=== PATIENT | female | born 1965 | race Caucasian/White ===

== ENCOUNTER → 2022-01-22 10:15 | Outpatient (BNVA) | payer OTHER, SELFPAY | PROVIDERS: PCP Internal Medicine; Visit Provider Internal Medicine Rheumatology | DX: M06.00 Rheumatoid arthritis without rheumatoid factor, unspecified site (principal); M47.816 Spondylosis without myelopathy or radiculopathy, lumbar region; M79.7 Fibromyalgia; F32.A Depression, unspecified; M81.0 Age-related osteoporosis without current pathological fracture; Z79.899 Other long term (current) drug therapy | CPT/HCPCS: 99212 ==

== ENCOUNTER 2022-04-17 12:05 | Outpatient (REF) | payer OTHER, SELFPAY ==
[2022-04-17 12:25] LABS: MANUAL DIFF FLAG NO
[2022-04-17 12:45] LABS: Basophils Percent Auto 0.5 % (0-2); Eosinophils Absolute Auto 0.2 X10*3/uL (0.0-0.4); Hematocrit 42.2 % (37.0-47.0); Hemoglobin 13.8 g/dl (12.0-16.0); Imm Gran Abs Auto 0.03 X10*3/uL (0.00-0.03); Imm Gran Pct Auto 0.3 % (0.0-0.4); Lymphocytes Absolute Auto 2.9 X10*3/uL (1.2-4.9); Lymphocytes Percent Auto 32.5 % (20-40); Mean Corpuscular HGB Conc 32.7 g/dl (31.0-35.0); Mean Corpuscular Hemoglobin 33.1 pg (27.0-33.0); Mean Corpuscular Volume 101.2 fL (80.0-98.0); Mean Platelet Volume 9.6 fL (9.4-12.3); Monocytes Absolute Auto 0.5 X10*3/uL (0.1-1.2); Neutrophils Absolute Auto 5.2 x10*3/uL (2.0-8.3); Neutrophils Percent Auto 58.7 % (45-73); Platelet Count 315 X10*3/uL (160-400); Red Blood Count 4.17 X10*6/uL (4.20-5.50); Red Cell Distribution Width 12.8 % (11.0-16.0); White Blood Count 8.8 X10*3/uL (4.8-10.8)
[2022-04-17 13:12] LABS: Alanine Aminotransferase 16 U/L (0-31); Aspartate Amino Transferase 18 U/L (5-31); C Reactive Protein 1.09 mg/dL (< or = 0.50); Estimated Glomerular Filt Rate > 60
[2022-04-17 13:32] LABS: Erythrocyte Sedimentation Rate 64 MM/HR (0-20)
== END 2022-04-17 12:06 | disposition home or self-care (01) ==
LOC: HO.LAB 12:05
PROVIDERS: Visit Provider Internal Medicine Rheumatology
DX: M06.00 Rheumatoid arthritis without rheumatoid factor, unspecified site (principal); Z79.899 Other long term (current) drug therapy
CPT/HCPCS: 36415; 82565; 84450; 84460; 85025; 85652; 86140

== ENCOUNTER → 2022-04-20 13:11 | Outpatient (BNVA) | payer OTHER, SELFPAY | PROVIDERS: PCP Internal Medicine; Visit Provider Internal Medicine Rheumatology | DX: M06.00 Rheumatoid arthritis without rheumatoid factor, unspecified site (principal); M81.0 Age-related osteoporosis without current pathological fracture; M79.7 Fibromyalgia; M47.816 Spondylosis without myelopathy or radiculopathy, lumbar region; M47.812 Spondylosis without myelopathy or radiculopathy, cervical region; Z79.899 Other long term (current) drug therapy | CPT/HCPCS: 99212 ==

== ENCOUNTER 2022-07-01 12:08 | Outpatient (REF) | payer OTHER, SELFPAY ==
[2022-07-01 13:14] LABS: Alanine Aminotransferase 13 U/L (0-31); Aspartate Amino Transferase 16 U/L (5-31); C Reactive Protein 1.48 mg/dL (< or = 0.50); Estimated Glomerular Filt Rate > 60
[2022-07-01 13:21] LABS: Erythrocyte Sedimentation Rate 64 MM/HR (0-20)
== END 2022-07-01 12:09 | disposition home or self-care (01) ==
LOC: HO.LAB 12:08
PROVIDERS: Visit Provider Internal Medicine Rheumatology
DX: M06.00 Rheumatoid arthritis without rheumatoid factor, unspecified site (principal); Z79.899 Other long term (current) drug therapy
CPT/HCPCS: 36415; 82565; 84450; 84460; 85652; 86140

== ENCOUNTER 2022-08-14 12:07 | Outpatient (REF) | payer OTHER, SELFPAY ==
[2022-08-14 12:28] LABS: MANUAL DIFF FLAG NO
[2022-08-14 13:27] LABS: Basophils Percent Auto 0.2 % (0-2); Eosinophils Absolute Auto 0.2 X10*3/uL (0.0-0.4); Eosinophils Percent Auto 1.8 % (0-4); Hematocrit 37.8 % (37.0-47.0); Hemoglobin 12.6 g/dl (12.0-16.0); Imm Gran Abs Auto 0.02 X10*3/uL (0.00-0.03); Imm Gran Pct Auto 0.2 % (0.0-0.4); Lymphocytes Absolute Auto 2.8 X10*3/uL (1.2-4.9); Lymphocytes Percent Auto 34.6 % (20-40); Mean Corpuscular HGB Conc 33.3 g/dl (31.0-35.0); Mean Corpuscular Hemoglobin 33.7 pg (27.0-33.0); Mean Corpuscular Volume 101.1 fL (80.0-98.0); Mean Platelet Volume 10.2 fL (9.4-12.3); Monocytes Absolute Auto 0.6 X10*3/uL (0.1-1.2); Monocytes Percent Auto 6.8 % (2-11); Neutrophils Absolute Auto 4.6 x10*3/uL (2.0-8.3); Neutrophils Percent Auto 56.4 % (45-73); Platelet Count 294 X10*3/uL (160-400); Red Blood Count 3.74 X10*6/uL (4.20-5.50); Red Cell Distribution Width 12.4 % (11.0-16.0); White Blood Count 8.1 X10*3/uL (4.8-10.8)
[2022-08-14 13:46] LABS: Alanine Aminotransferase 13 U/L (0-31); Aspartate Amino Transferase 16 U/L (5-31); C Reactive Protein 1.42 mg/dL (< or = 0.50); Estimated Glomerular Filt Rate > 60
[2022-08-14 14:12] LABS: Erythrocyte Sedimentation Rate 64 MM/HR (0-20)
== END 2022-08-14 12:08 | disposition home or self-care (01) ==
LOC: HO.LAB 12:07
PROVIDERS: PCP Internal Medicine; Visit Provider Internal Medicine Rheumatology
DX: M06.00 Rheumatoid arthritis without rheumatoid factor, unspecified site (principal); Z79.899 Other long term (current) drug therapy
CPT/HCPCS: 36415; 82565; 84450; 84460; 85025; 85652; 86140

== ENCOUNTER → 2022-08-20 09:47 | Outpatient (BNVA) | payer OTHER, SELFPAY | PROVIDERS: PCP Internal Medicine; Visit Provider Internal Medicine Rheumatology | DX: M47.816 Spondylosis without myelopathy or radiculopathy, lumbar region (principal); M06.00 Rheumatoid arthritis without rheumatoid factor, unspecified site; M81.0 Age-related osteoporosis without current pathological fracture; Z79.899 Other long term (current) drug therapy | CPT/HCPCS: 99212 ==

== ENCOUNTER 2022-10-09 11:16 | Outpatient (REF) | payer MEDICARE, MEDICAID, SELFPAY ==
[2022-10-09 14:22] LABS: MANUAL DIFF FLAG NO
[2022-10-09 14:28] LABS: Basophils Absolute Auto 0.1 X10*3/uL (0.0-0.2); Basophils Percent Auto 0.7 % (0-2); Eosinophils Absolute Auto 0.2 X10*3/uL (0.0-0.4); Eosinophils Percent Auto 2.9 % (0-4); Hematocrit 42.1 % (37.0-47.0); Hemoglobin 13.9 g/dl (12.0-16.0); Imm Gran Abs Auto 0.02 X10*3/uL (0.00-0.03); Imm Gran Pct Auto 0.3 % (0.0-0.4); Lymphocytes Absolute Auto 2.6 X10*3/uL (1.2-4.9); Lymphocytes Percent Auto 36.2 % (20-40); Mean Corpuscular Hemoglobin 33.6 pg (27.0-33.0); Mean Corpuscular Volume 101.7 fL (80.0-98.0); Mean Platelet Volume 9.7 fL (9.4-12.3); Monocytes Absolute Auto 0.5 X10*3/uL (0.1-1.2); Monocytes Percent Auto 7.3 % (2-11); Neutrophils Absolute Auto 3.8 x10*3/uL (2.0-8.3); Neutrophils Percent Auto 52.6 % (45-73); Platelet Count 314 X10*3/uL (160-400); Red Blood Count 4.14 X10*6/uL (4.20-5.50); Red Cell Distribution Width 12.4 % (11.0-16.0); White Blood Count 7.3 X10*3/uL (4.8-10.8)
[2022-10-09 14:52] LABS: Alanine Aminotransferase 14 U/L (0-31); Aspartate Amino Transferase 19 U/L (5-31); C Reactive Protein 1.49 mg/dL (< or = 0.50); Estimated Glomerular Filt Rate > 60
[2022-10-09 17:04] LABS: Erythrocyte Sedimentation Rate 77 MM/HR (0-20)
== END 2022-10-09 11:17 | disposition home or self-care (01) ==
LOC: HO.10HDL 11:16
PROVIDERS: Visit Provider Internal Medicine Rheumatology
DX: M06.00 Rheumatoid arthritis without rheumatoid factor, unspecified site (principal); Z79.899 Other long term (current) drug therapy
CPT/HCPCS: 36415; 82565; 84450; 84460; 85025; 85652; 86140

== ENCOUNTER 2023-01-11 12:24 | Outpatient (REF) | payer MEDICARE, MEDICAID, SELFPAY ==
[2023-01-11 14:05] LABS: MANUAL DIFF FLAG NO
[2023-01-11 14:10] LABS: Basophils Absolute Auto 0.1 X10*3/uL (0.0-0.2); Basophils Percent Auto 0.7 % (0-2); Eosinophils Absolute Auto 0.2 X10*3/uL (0.0-0.4); Eosinophils Percent Auto 2.6 % (0-4); Hematocrit 41.5 % (37.0-47.0); Hemoglobin 13.7 g/dl (12.0-16.0); Imm Gran Abs Auto 0.02 X10*3/uL (0.00-0.03); Imm Gran Pct Auto 0.2 % (0.0-0.4); Lymphocytes Percent Auto 36.1 % (20-40); Mean Corpuscular Hemoglobin 33.7 pg (27.0-33.0); Mean Corpuscular Volume 102.2 fL (80.0-98.0); Mean Platelet Volume 9.8 fL (9.4-12.3); Monocytes Absolute Auto 0.6 X10*3/uL (0.1-1.2); Monocytes Percent Auto 6.5 % (2-11); Neutrophils Absolute Auto 4.5 x10*3/uL (2.0-8.3); Neutrophils Percent Auto 53.9 % (45-73); Platelet Count 357 X10*3/uL (160-400); Red Blood Count 4.06 X10*6/uL (4.20-5.50); Red Cell Distribution Width 12.5 % (11.0-16.0); White Blood Count 8.4 X10*3/uL (4.8-10.8)
[2023-01-11 14:50] LABS: Erythrocyte Sedimentation Rate 67 MM/HR (0-20)
[2023-01-11 14:52] LABS: Alanine Aminotransferase 14 U/L (0-31); Aspartate Amino Transferase 16 U/L (5-31); C Reactive Protein 1.22 mg/dL (< or = 0.50); Estimated Glomerular Filt Rate > 60
== END 2023-01-11 12:25 | disposition home or self-care (01) ==
LOC: HO.HMGCLDS 12:24
PROVIDERS: PCP Internal Medicine; Visit Provider Internal Medicine Rheumatology
DX: M06.00 Rheumatoid arthritis without rheumatoid factor, unspecified site (principal); Z79.899 Other long term (current) drug therapy
CPT/HCPCS: 36415; 82565; 84450; 84460; 85025; 85652; 86140

== ENCOUNTER → 2023-04-06 09:47 | Outpatient (BNVA) | payer MEDICARE, MEDICAID, SELFPAY | PROVIDERS: PCP Internal Medicine; Visit Provider Internal Medicine Rheumatology | DX: M06.00 Rheumatoid arthritis without rheumatoid factor, unspecified site (principal); M79.7 Fibromyalgia; M81.0 Age-related osteoporosis without current pathological fracture; M47.816 Spondylosis without myelopathy or radiculopathy, lumbar region; Z79.631 Long term (current) use of antimetabolite agent; Z79.899 Other long term (current) drug therapy | CPT/HCPCS: 36415; 82565; 84450; 84460; 85025; 85652; 86140; 99212 ==

== ENCOUNTER 2023-06-30 11:41 | Outpatient (REF) | payer MEDICARE, MEDICAID, SELFPAY ==
[2023-06-30 13:17] LABS: MANUAL DIFF FLAG NO
[2023-06-30 13:40] LABS: Basophils Absolute Auto 0.1 X10*3/uL (0.0-0.2); Basophils Percent Auto 0.8 % (0-2); Eosinophils Absolute Auto 0.2 X10*3/uL (0.0-0.4); Hematocrit 41.3 % (37.0-47.0); Hemoglobin 13.7 g/dl (12.0-16.0); Imm Gran Abs Auto 0.02 X10*3/uL (0.00-0.03); Imm Gran Pct Auto 0.2 % (0.0-0.4); Lymphocytes Percent Auto 34.5 % (20-40); Mean Corpuscular HGB Conc 33.2 g/dl (31.0-35.0); Mean Corpuscular Hemoglobin 33.9 pg (27.0-33.0); Mean Corpuscular Volume 102.2 fL (80.0-98.0); Mean Platelet Volume 9.6 fL (9.4-12.3); Monocytes Absolute Auto 0.6 X10*3/uL (0.1-1.2); Monocytes Percent Auto 6.7 % (2-11); Neutrophils Absolute Auto 4.9 x10*3/uL (2.0-8.3); Neutrophils Percent Auto 55.8 % (45-73); Platelet Count 303 X10*3/uL (160-400); Red Blood Count 4.04 X10*6/uL (4.20-5.50); Red Cell Distribution Width 12.4 % (11.0-16.0); White Blood Count 8.8 X10*3/uL (4.8-10.8)
[2023-06-30 13:48] LABS: Alanine Aminotransferase 13 U/L (0-31); Aspartate Amino Transferase 15 U/L (5-31); C Reactive Protein 1.14 mg/dL (< or = 0.50); Estimated Glomerular Filt Rate > 60
[2023-06-30 14:06] LABS: Erythrocyte Sedimentation Rate 73 MM/HR (0-20)
== END 2023-06-30 11:42 | disposition home or self-care (01) ==
LOC: HO.HMGCLDS 11:41
PROVIDERS: PCP Internal Medicine; Visit Provider Internal Medicine Rheumatology
DX: M06.00 Rheumatoid arthritis without rheumatoid factor, unspecified site (principal); Z79.899 Other long term (current) drug therapy
CPT/HCPCS: 36415; 82565; 84450; 84460; 85025; 85652; 86140

== ENCOUNTER 2023-08-24 10:52 | Outpatient (AMB) | payer MEDICARE, MEDICAID, SELFPAY ==
--- NOTE | 2023-08-24 10:57 | A.OFFVIS_ITS ---
Intake Vital Signs 08/24/23 10:58 Height 5 ft Weight 151 lb 0.266 oz BMI 29.5 BP 100/62 Blood Pressure Location Lt brachial Position Sitting Pulse 69 Pulse Source Pulse Oximeter Temp 97 F Temp Source Skin Pulse Oximetry (%) 95 Oxygen Delivery Method Room Air Intake Visit Reasons: RA Intake Note: Patient presents today to follow up on RA. Node Js Developer Required: No Accompanied by: Self / Same As Patient Allergies seafood Allergy (Severe, Verified 08/24/23 11:04) throat closes sulfamethoxazole [From Bactrim] Allergy (Intermediate, Verified 08/24/23 11:04) hives trimethoprim [From Bactrim] Allergy (Intermediate, Verified 08/24/23 11:04) hives Medication List - Last Reconciled 08/24/23 by Jt Allison MD albuterol sulfate 90 mcg/actuation 0 mcg inhalation alendronate 70 mg PO QWEEK aspirin (Adult Low Dose Aspirin) 81 mg PO DAILY budesonide-formoterol 160-4.5 mcg/actuation (Symbicort) inhalation cholecalciferol (vitamin D3) (Vitamin D3) 50 mcg PO DAILY cyclobenzaprine 5 mg PO TID PRN diltiazem HCl ER 240 mg PO DAILY docusate sodium 100 mg PO BID duloxetine 60 mg PO DAILY folic acid 1 mg PO DAILY hydrocodone-acetaminophen 10-325 mg 1 tab PO .up to 5 times a day PRN meloxicam 15 mg PO DAILY methotrexate sodium 20 mg (8 x 2.5 mg) PO QWEEK omeprazole 40 mg PO DAILY oxycodone ER (OxyContin) 15 mg PO BID rosuvastatin 5 mg PO DAILY HPI HPI Comments History of Present Illness Details The patient returns today for evaluation of her rheumatoid arthritis, osteoarthritis, and osteoporosis. For the rheumatoid arthritis she remains on 20 mg weekly methotrexate folic acid 1 mg daily, and meloxicam 15 mg daily. Julee ndronate 70 mg weekly is continued for her osteoporosis without any apparent side effects. She remains on pain medicines -OxyContin and Vicodin - through her primary doctor and cyclobenzaprine if needed. In some respects she says she has been more active but she has more stress at home. She had to go out to [place] and brought back her mother who apparently has dementia and was in a abuse/neglected living situation. She has been with the daughter now for about a month. They are trying to get a handle on her medical issues. The patient still gets intermittent hand and wrist pain but no swelling. I did inject the wrist awhile ago and that helped. She has knee pain on the right when she is more active but it does not swell. It was not helped with injections in past. The patient did look into getting to the pool at the [facility] but the expenses were too high. She says she may decide to buy a hot tub as she felt much more mobile and comfortable in the warm water. The patient does not describe any side effects from the current medications. [facility] Medical History (Updated 08/20/22 @ 11:51 by Jt Allison MD) correction current use of immunosuppressive drug Depressed Fibromyalgia Osteoarthritis of lumbar spine Osteoporosis Seronegative rheumatoid arthritis Social History Household Members Other:: Living with son Housing: House Are you a primary life care planner to a significant other at home: No Do you presently have visiting nurse or other home services: No 75 years or older and lives alone: No Alcohol intake: never Patient Tobacco Use Status: Current everyday Tobacco user Tobacco use type: Cigarette Cigarettes Per Day: 5 Years Smoked: 43 years e-Cigarette/Vaping Use: Never Used service: No Current occupational status: unemployed Review of Systems Const Details: Negative for appetite change, weight change, fever, chills, malaise and fatigue Card Details: Negative chest pain, edema and syncope Resp Details: Negative for SOB, cough and wheezing GI Details: Negative indigestion/heartburn, nausea, abdominal pain, bowel changes, diarrhea, constipation and bloody stool. Psych Details: More stress at home caring for her mother. Negative for anxiety, depression Endo Details: Negative for polyuria and polydypsia Jd/Lymph Details: Negative for excessive bruising or bleeding. Physical Exam Vital Signs: Last Vital Signs Temp 97 F 08/24/23 10:58 Pulse 69 08/24/23 10:58 BP 100/62 08/24/23 10:58 Pulse Ox 95 08/24/23 10:58 Oxygen Delivery Method Room Air 08/24/23 10:58 BMI result Body Mass Index 29.5 APPEARANCE: Patient in no acute distress EXTREMITIES: No edema, no calf tenderness, normal peripheral pulses. JOINT EXAM: Cervical Spine:.? Mild pain with more than 20 degrees lateral rotation or lateral flexion at 50 degrees.? Some paraspinal muscle tenderness. Thoracic Spine:.? No scoliosis.? No tenderness on palpation. Lumbar Spine:.? Alignment normal.? Mild to moderate pain with flexion beyond 45 degrees.? There is some slight paraspinal muscle tenderness. Chest Wall:.? No tenderness, swelling, increased warmth or erythema. Hands:? Right:? Mild tenderness at the base of the thumb with some minimal bony enlargement.? Mild tenderness at the 2nd PIP without soft tissue swelling.? There is no thenar atrophy, sensory loss, a flexor tendon triggering.? Left: Slight tenderness at the base of the thumb.? Minimal tenderness at the 2nd and 3rd PIP is without swelling.? Elsewhere no swelling.? No thenar atrophy or sensory loss. Wrists:? Right:?no pain with flexion at 75 degrees with some slight the tenderness but no swelling, increased warmth or erythema.? Left:? Pain-free flexion or extension to 75 degrees.? No tenderness or swelling. Elbows:. Normal pain-free range of motion without tenderness, swelling, increased warmth or erythema. Shoulders:.?? Right: Full range of motion with slight discomfort with abduction 150 degrees.? The pain is felt over the trapezius in the top of the shoulders.? Mild anterior and posterior tenderness without adenopathy, weakness, swelling, increased warmth or erythema. Left: Mild pain with the extremes of normal range of motion. There is mild anterior tenderness without abductor weakness or adenopathy. Hips:? Full range of motion with lumbar pain with more than 10 degrees of internal and external rotation.? No groin pain with motion.? Hip bursa:.? No tenderness. Knees:.? Right:? Slight pain with extremes of flexion extension with some minimal medial tenderness but no redness or effusion.? Mild patellofemoral crepitus.? Left:? Normal pain-free range of motion with mild patellofemoral crepitus but no tenderness, swelling, increased warmth or erythema. Ankles:.? Normal pain-free range of motion with mild tenderness but no swelling, increased warmth or erythema. Feet:.? Normal pain-free range of motion without tenderness, swelling, increased warmth or erythema. Tender points:? mild tenderness to digital palpation at the occiput, trapezius, second rib, lateral epicondyle, right knee, greater trochanter and gluteal area bilaterally. Results Reviewed Results Reviewed: Laboratory Tests 06/30/23 06/30/23 06/30/23 11:44 11:46 11:46 WBC 8.8 Hgb 13.7 ESR 73 H Creatinine 0.74 AST 15 ALT 13 C-Reactive Protein 1.14 H Assessment & Plan Assessment & Plan (1) correction current use of immunosuppressive drug: Comment: lab in May and July Code(s): Z79.899 - Other middle or intermediate school principal (current) drug therapy (2) Fibromyalgia: Code(s): M79.7 - Fibromyalgia (3) Osteoarthritis of lumbar spine: Code(s): M47.816 - Spondylosis without myelopathy or radiculopathy, lumbar region (4) Osteoporosis: Comment: Alendronate since 2018 Code(s): M81.0 - Age-related osteoporosis without current pathological fracture (5) Seronegative rheumatoid arthritis: Comment: methotrexate started 01/2019 Code(s): M06.00 - Rheumatoid arthritis without rheumatoid factor, unspecified site Plan She still has many pains but I do not see much on exam to suggest active synovitis from the rheumatoid arthritis. Her acute phase reactants remain elevated as they have for years but I still do not have a good explanation for that. There is lumbar pain of course due to osteoarthritis and previous compression fractures. The current pain regimen seems to be helpful for her without over-sedation. There are many areas of tenderness suggesting some underlying fibromyalgia as well. She should continue with efforts at trying to be active. Alendronate is tolerated and should be continued for her osteoporosis. We will check lab work again in 2 months and 4 months. Return in 4 months. Orders: Orders Alanine Aminotransferase Today M06.00 - Rheumatoid arthritis without rheumatoid factor, unspecified site, Z79.899 - Other middle or intermediate school principal (current) drug therapy Aspartate Amino Transferase Today M06.00 - Rheumatoid arthritis without rheumatoid factor, unspecified site, Z79.899 - Other fdc (current) drug therapy Complete Blood Count Auto Diff Today M06.00 - Rheumatoid arthritis without rheumatoid factor, unspecified site, Z79.899 - Other middle or intermediate school principal (current) drug therapy Erythrocyte Sedimentation Rate Today M06.00 - Rheumatoid arthritis without rheumatoid factor, unspecified site C Reactive Protein Today M06.00 - Rheumatoid arthritis without rheumatoid factor, unspecified site Creatinine Today M06.00 - Rheumatoid arthritis without rheumatoid factor, unspecified site, Z79.899 - Other middle or intermediate school principal (current) drug therapy Coding Level of Care Code Est Pt Level 3 (63294) Diagnoses correction current use of immunosuppressive drug Z79.899 Fibromyalgia M79.7 Osteoarthritis of lumbar spine M47.816 Osteoporosis M81.0 Seronegative rheumatoid arthritis M06.00
[2023-08-24 10:58] VITALS: BP 100/62; PULSE 69; TEMP 36.1; O2SAT 95; BMI 29.5
== END 2023-08-24 11:38 | disposition home or self-care (01) ==
PROVIDERS: PCP Internal Medicine; Visit Provider Internal Medicine Rheumatology
DX: Z79.899 Other long term (current) drug therapy (principal); M79.7 Fibromyalgia; M47.816 Spondylosis without myelopathy or radiculopathy, lumbar region; M81.0 Age-related osteoporosis without current pathological fracture; M06.00 Rheumatoid arthritis without rheumatoid factor, unspecified site
CPT/HCPCS: 99213

== ENCOUNTER → 2023-08-24 10:52 | Outpatient (BNVA) | payer MEDICARE, MEDICAID, SELFPAY | PROVIDERS: PCP Internal Medicine; Visit Provider Internal Medicine Rheumatology | DX: M81.0 Age-related osteoporosis without current pathological fracture (principal); M79.7 Fibromyalgia; M06.00 Rheumatoid arthritis without rheumatoid factor, unspecified site; M47.816 Spondylosis without myelopathy or radiculopathy, lumbar region; Z79.899 Other long term (current) drug therapy | CPT/HCPCS: 99212 ==

== ENCOUNTER 2023-10-05 10:20 | Outpatient (REF) | payer MEDICARE, MEDICAID, SELFPAY ==
[2023-10-05 13:42] LABS: MANUAL DIFF FLAG NO
[2023-10-05 13:55] LABS: Basophils Absolute Auto 0.1 X10*3/uL (0.0-0.2); Basophils Percent Auto 0.8 % (0-2); Eosinophils Absolute Auto 0.2 X10*3/uL (0.0-0.4); Hematocrit 43.3 % (37.0-47.0); Hemoglobin 13.9 g/dl (12.0-16.0); Imm Gran Abs Auto 0.02 X10*3/uL (0.00-0.03); Imm Gran Pct Auto 0.3 % (0.0-0.4); Lymphocytes Absolute Auto 2.5 X10*3/uL (1.2-4.9); Lymphocytes Percent Auto 35.6 % (20-40); Mean Corpuscular HGB Conc 32.1 g/dl (31.0-35.0); Mean Corpuscular Hemoglobin 33.5 pg (27.0-33.0); Mean Corpuscular Volume 104.3 fL (80.0-98.0); Mean Platelet Volume 10.3 fL (9.4-12.3); Monocytes Absolute Auto 0.6 X10*3/uL (0.1-1.2); Neutrophils Absolute Auto 3.7 x10*3/uL (2.0-8.3); Neutrophils Percent Auto 52.3 % (45-73); Platelet Count 322 X10*3/uL (160-400); Red Blood Count 4.15 X10*6/uL (4.20-5.50); Red Cell Distribution Width 12.5 % (11.0-16.0); White Blood Count 7.1 X10*3/uL (4.8-10.8)
[2023-10-05 14:44] LABS: Alanine Aminotransferase 11 U/L (0-31); Aspartate Amino Transferase 18 U/L (5-31); Estimated Glomerular Filt Rate > 60
[2023-10-05 15:02] LABS: Erythrocyte Sedimentation Rate 67 MM/HR (0-20)
== END 2023-10-05 10:21 | disposition home or self-care (01) ==
LOC: HO.HMGCLDS 10:20
PROVIDERS: PCP Internal Medicine; Visit Provider Internal Medicine Rheumatology
DX: M06.00 Rheumatoid arthritis without rheumatoid factor, unspecified site (principal); Z79.899 Other long term (current) drug therapy
CPT/HCPCS: 36415; 82565; 84450; 84460; 85025; 85652; 86140

== ENCOUNTER 2023-12-06 09:03 | Outpatient (REF) | payer MEDICARE, MEDICAID, SELFPAY ==
[2023-12-06 11:48] LABS: MANUAL DIFF FLAG NO
[2023-12-06 12:05] LABS: Basophils Absolute Auto 0.1 X10*3/uL (0.0-0.2); Basophils Percent Auto 0.7 % (0-2); Eosinophils Absolute Auto 0.3 X10*3/uL (0.0-0.4); Hematocrit 40.2 % (37.0-47.0); Hemoglobin 13.2 g/dl (12.0-16.0); Imm Gran Abs Auto 0.02 X10*3/uL (0.00-0.03); Imm Gran Pct Auto 0.2 % (0.0-0.4); Lymphocytes Absolute Auto 3.4 X10*3/uL (1.2-4.9); Lymphocytes Percent Auto 40.4 % (20-40); Mean Corpuscular HGB Conc 32.8 g/dl (31.0-35.0); Mean Corpuscular Volume 103.6 fL (80.0-98.0); Monocytes Absolute Auto 0.5 X10*3/uL (0.1-1.2); Neutrophils Absolute Auto 4.2 x10*3/uL (2.0-8.3); Neutrophils Percent Auto 49.7 % (45-73); Platelet Count 295 X10*3/uL (160-400); Red Blood Count 3.88 X10*6/uL (4.20-5.50); Red Cell Distribution Width 12.6 % (11.0-16.0); White Blood Count 8.4 X10*3/uL (4.8-10.8)
[2023-12-06 12:26] LABS: Alanine Aminotransferase 12 U/L (0-31); Aspartate Amino Transferase 17 U/L (5-31); C Reactive Protein 0.89 mg/dL (< or = 0.50); Estimated Glomerular Filt Rate > 60
[2023-12-06 12:51] LABS: Erythrocyte Sedimentation Rate 57 MM/HR (0-20)
== END 2023-12-06 09:04 | disposition home or self-care (01) ==
LOC: HO.HMGCLDS 09:03
PROVIDERS: PCP Internal Medicine; Visit Provider Internal Medicine Rheumatology
DX: M06.00 Rheumatoid arthritis without rheumatoid factor, unspecified site (principal); Z79.899 Other long term (current) drug therapy
CPT/HCPCS: 36415; 82565; 84450; 84460; 85025; 85652; 86140

== ENCOUNTER 2023-12-09 13:54 | Outpatient (AMB) | payer MEDICARE, MEDICAID, SELFPAY ==
--- NOTE | 2023-12-09 14:10 | MHC.OFFVIS ---
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 Deputy Director Of Finance Required: No Accompanied by: Self / Same As Patient Allergies seafood Allergy (Severe, Verified 12/09/23 14:10) throat closes sulfamethoxazole [From Bactrim] Allergy (Intermediate, Verified 12/09/23 14:10) hives trimethoprim [From Bactrim] Allergy (Intermediate, Verified 12/09/23 14:10) hives HPI HPI Comments History of Present Illness Details Ms. Rascon 58yoF returns today for follow up of her rheumatoid arthritis, osteoarthritis, and osteoporosis. She reports that her hands and wrists continues to worsened with pain and swelling. She says her hands are very stiff and painful and she drop things often. Her knees, especially the right, still hurt, and she thinks the corticosteroids injections are not helping and methotrexate is not enough. She continues on 20 mg weekly methotrexate folic acid 1 mg daily, and meloxicam 15 mg daily. Alendronate 70 mg weekly is continued for her osteoporosis and she denies any apparent side effects. She also takes pain medicines -OxyContin and Vicodin - through her primary doctor and cyclobenzaprine if needed. Last Visit: 08/24/2023 For the rheumatoid arthritis she remains on 20 mg weekly methotrexate folic acid 1 mg daily, and meloxicam 15 mg daily. Alendronate 70 mg weekly is continued for her osteoporosis without any apparent side effects. She remains on pain medicines -OxyContin and Vicodin - through her primary doctor and cyclobenzaprine if needed. In some respects she says she has been more active but she has more stress at home. She had to go out to [place] and brought back her mother who apparently has dementia and was in a abuse/neglected living situation. She has been with the daughter now for about a month. They are trying to get a handle on her medical issues. The patient still gets intermittent hand and wrist pain but no swelling. I did inject the wrist awhile ago and that helped. She has knee pain on the right when she is more active but it does not swell. It was not helped with injections in past. The patient did look into getting to the pool at the [facility] but the expenses were too high. She says she may decide to buy a hot tub as she felt much more mobile and comfortable in the warm water. The patient does not describe any side effects from the current medications. [facility] Medical History (Updated 12/15/23 @ 02:33 by ASHLEY Rodas) Screening examination for infectious disease longterm current use of immunosuppressive drug Depressed Fibromyalgia Osteoarthritis of lumbar spine Osteoporosis Seronegative rheumatoid arthritis Social History Household Members Other:: Living with son Housing: House Are you a primary childcare teacher to a significant other at home: No Do you presently have visiting nurse or other home services: No 75 years or older and lives alone: No Alcohol intake: never Patient Tobacco Use Status: Current everyday Tobacco user Tobacco use type: Cigarette Cigarettes Per Day: 5 Years Smoked: 43 years e-Cigarette/Vaping Use: Never Used service: No Current occupational status: unemployed Review of Systems Const All systems reviewed & are unremarkable except as noted in HPI and below Physical Exam Vital Signs: Last Vital Signs Temp 97 F 12/09/23 14:11 Pulse 80 12/09/23 14:11 BP 100/80 12/09/23 14:11 BMI result Body Mass Index 29.2 APPEARANCE: Patient in no acute distress EXTREMITIES: No edema, no calf tenderness, normal peripheral pulses. JOINT EXAM: Cervical Spine:.? Mild pain with more than 20 degrees lateral rotation or lateral flexion at 50 degrees.? Some paraspinal muscle tenderness. Thoracic Spine:.? No scoliosis.? No tenderness on palpation. Lumbar Spine:.? Alignment normal.? Mild to moderate pain with flexion beyond 45 degrees.? There is some slight paraspinal muscle tenderness. Chest Wall:.? No tenderness, swelling, increased warmth or erythema. Hands:? Right:? Moderate tenderness at the base of the thumb with some minimal bony enlargement.? Tenderness and swelling across PIPs and unable to make a tight first with weakened narrow fabrics weaver and stiffness. There is no thenar atrophy, sensory loss, a flexor tendon triggering.? Left: Slight tenderness at the base of the thumb.? Moderate tenderness at the base of the thumb with some minimal bony enlargement.? Tenderness and swelling across PIPs and unable to make a tight first with weakened narrow fabrics weaver and stiffness..? No thenar atrophy or sensory loss. Her fingers are warm with so erythema Wrists:? Right:?no pain with flexion at 75 degrees with some the tenderness but no swelling, increased warmth or erythema.? Left:? Pain-free flexion or extension to 75 degrees.? Tenderness on palpation but no swelling. Elbows:. Normal pain-free range of motion without tenderness, swelling, increased warmth or erythema. Shoulders:.?? Right: Full range of motion with slight discomfort with abduction 150 degrees.? The pain is felt over the trapezius in the top of the shoulders.? Mild anterior and posterior tenderness without adenopathy, weakness, swelling, increased warmth or erythema. Left: Mild pain with the extremes of normal range of motion. There is mild anterior tenderness without abductor weakness or adenopathy. Hips:? Full range of motion with lumbar pain with more than 10 degrees of internal and external rotation.? No groin pain with motion.? Hip bursa:.? No tenderness. Knees:.? Right:? Slight pain with extremes of flexion extension with some minimal medial tenderness but no redness or effusion.? Mild patellofemoral crepitus.? Left:? Normal pain-free range of motion with mild patellofemoral crepitus but no tenderness, swelling, increased warmth or erythema. Ankles:.? Normal pain-free range of motion with mild tenderness but no swelling, increased warmth or erythema. Feet:.? Normal pain-free range of motion without tenderness, swelling, increased warmth or erythema. Tender points:? mild tenderness to digital palpation at the occiput, trapezius, second rib, lateral epicondyle, right knee, greater trochanter and gluteal area bilaterally. Results Reviewed Results Reviewed: Laboratory Tests 06/30/23 06/30/23 06/30/23 11:44 11:46 11:46 WBC 8.8 Hgb 13.7 ESR 73 H Creatinine 0.74 AST 15 ALT 13 C-Reactive Protein 1.14 H Laboratory Tests 10/05/23 10/05/23 10/05/23 10:25 10:25 10:25 WBC 7.1 RBC 4.15 L Hgb Hct 43.3 MCV 104.3 H MCH 33.5 H ESR Creatinine AST ALT C-Reactive Protein 10/05/23 10/05/23 10/05/23 10:25 10:25 10:25 WBC RBC Hgb 13.9 Hct MCV MCH ESR 67 H Creatinine 0.73 AST 18 ALT 11 C-Reactive Protein 10/05/23 12/06/23 12/06/23 10:25 09:10 09:10 WBC 8.4 RBC 3.88 L Hgb 13.2 Hct 40.2 MCV 103.6 H MCH ESR Creatinine AST ALT C-Reactive Protein 0.70 H 12/06/23 12/06/23 12/06/23 09:10 09:10 09:10 WBC RBC Hgb Hct MCV MCH 34.0 H ESR Creatinine 0.70 AST 17 ALT C-Reactive Protein 12/06/23 12/06/23 09:10 09:10 WBC RBC Hgb Hct MCV MCH ESR 57 H Creatinine AST ALT 12 C-Reactive Protein 0.89 H Assessment & Plan Assessment & Plan (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 Ms. Rascon has been on MTX since 2019 and has no other medication has been added to manage the RA. With persistently elevated ESR/CRP and swollen, painful Hand IP joints and knees, I do not think the RA is adequately managed with MTX. She has marked tenderness and swelling across PIPs and unable to make a tight first with weakened narrow fabrics weaver and stiffness. The patient states her hands has been like that on and off but is more swollen sometimes than others. I think she will benefit from more or a change in immunosuppressants especially with ESR/CRP not at goal. I will HUMIRA and reassess for improvement hands and ESR/CRP. She will continue MTX 20 mg QW and Folic Acid 1 mg QD. We sill consider to reduce MTX if improved on HUMIRA. I will check labs in 8 weeks #OA: Lumbar: There is lumbar pain of course due to osteoarthritis and previous compression fractures. The current pain regimen seems to be helpful for her without over-sedation. There are many areas of tenderness suggesting some underlying fibromyalgia as well. She should continue with efforts at trying to be active. #Osteoporosis: Alendronate is tolerated and should be continued for her osteoporosis. Return in 8 weeks. I spent 40 minutes reviewing chart, evaluating patient and documenting. Orders: Orders T Spot TB Today Z11.9 - Encounter for screening for infectious and parasitic diseases, unspecified Hepatitis A,B,C Profile Today Z11.9 - Encounter for screening for infectious and parasitic diseases, unspecified C Reactive Protein 8 Weeks M06.00 - Rheumatoid arthritis without rheumatoid factor, unspecified site, Z79.899 - Other long term care pharmacist (current) drug therapy Complete Blood Count Auto Diff 8 Weeks M06.00 - Rheumatoid arthritis without rheumatoid factor, unspecified site, Z79.899 - Other long term care pharmacist (current) drug therapy Comprehensive Met. 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
[2023-12-09 14:11] VITALS: BP 100/80; PULSE 80; TEMP 36.1; BMI 29.2
== END 2023-12-09 14:49 | disposition home or self-care (01) ==
PROVIDERS: PCP Internal Medicine; Visit Provider Nurse Practitioner Family
DX: Z79.899 Other long term (current) drug therapy (principal); M47.816 Spondylosis without myelopathy or radiculopathy, lumbar region; M81.0 Age-related osteoporosis without current pathological fracture; M06.00 Rheumatoid arthritis without rheumatoid factor, unspecified site
CPT/HCPCS: 99214

== ENCOUNTER → 2023-12-09 13:54 | Outpatient (BNVA) | payer MEDICARE, MEDICAID, SELFPAY | PROVIDERS: PCP Internal Medicine; Visit Provider Nurse Practitioner Family | DX: M06.00 Rheumatoid arthritis without rheumatoid factor, unspecified site (principal); M81.0 Age-related osteoporosis without current pathological fracture; M47.816 Spondylosis without myelopathy or radiculopathy, lumbar region; Z79.899 Other long term (current) drug therapy | CPT/HCPCS: 99212 ==

== ENCOUNTER 2023-12-15 10:47 | Outpatient (REF) | payer MEDICARE, MEDICAID, SELFPAY ==
[2023-12-16 08:11] LABS: HBS Num1 34.39 mIU/mL (0-7.99); HBsAGNum1 0.29 S/CO (0.00-0.99); Hepatitis A Antibody IgM 0.15 Index (0-0.79); Hepatitis B Core Antibody Nonreactive (Nonreactive); Hepatitis B Surface Antigen Negative (Negative); ~HepC Num1 0.21 S/CO (0.00-0.79); ~Hepatitis A Antibody IgM Nonreactive (Nonreactive); ~Hepatitis B Surface Antibody REACTIVE (Nonreactive); ~Hepatitis C Antibody Nonreactive (Nonreactive)
[2023-12-18 08:34] LABS: TS Negative Control Passed; TS Panel A 0; TS Panel B 0; TS Positive Control Passed; TSpotTB Negative (Negative)
== END 2023-12-15 10:48 | disposition home or self-care (01) ==
LOC: HO.HMGCLDS 10:47
PROVIDERS: PCP Internal Medicine; Visit Provider Nurse Practitioner Family
DX: Z11.9 Encounter for screening for infectious and parasitic diseases, unspecified (principal)
CPT/HCPCS: 36415; 86481; 86704; 86706; 86709; 86803; 87340

== ENCOUNTER → 2023-12-23 12:50 | Outpatient (BNVA) | payer MEDICARE, MEDICAID, SELFPAY | PROVIDERS: PCP Internal Medicine; Visit Provider Nurse Practitioner Family | DX: M06.9 Rheumatoid arthritis, unspecified (principal); Z71.89 Other specified counseling | CPT/HCPCS: 99211 ==

== ENCOUNTER 2024-02-09 11:06 | Outpatient (REF) | payer MEDICARE, MEDICAID, SELFPAY ==
[2024-02-09 13:12] LABS: MANUAL DIFF FLAG NO
[2024-02-09 13:33] LABS: Basophils Absolute Auto 0.1 X10*3/uL (0.0-0.2); Basophils Percent Auto 0.9 % (0-2); Eosinophils Absolute Auto 0.3 X10*3/uL (0.0-0.4); Eosinophils Percent Auto 3.8 % (0-4); Hematocrit 38.2 % (37.0-47.0); Imm Gran Abs Auto 0.01 X10*3/uL (0.00-0.03); Imm Gran Pct Auto 0.2 % (0.0-0.4); Lymphocytes Absolute Auto 1.5 X10*3/uL (1.2-4.9); Lymphocytes Percent Auto 22.9 % (20-40); Mean Corpuscular Hemoglobin 35.2 pg (27.0-33.0); Mean Corpuscular Volume 103.5 fL (80.0-98.0); Mean Platelet Volume 9.8 fL (9.4-12.3); Monocytes Absolute Auto 0.8 X10*3/uL (0.1-1.2); Monocytes Percent Auto 12.1 % (2-11); Neutrophils Absolute Auto 3.9 x10*3/uL (2.0-8.3); Neutrophils Percent Auto 60.1 % (45-73); Platelet Count 291 X10*3/uL (160-400); Red Blood Count 3.69 X10*6/uL (4.20-5.50); White Blood Count 6.5 X10*3/uL (4.8-10.8)
[2024-02-09 14:19] LABS: Erythrocyte Sedimentation Rate 44 MM/HR (0-20)
[2024-02-09 14:28] LABS: Alanine Aminotransferase 14 U/L (0-31); Albumin Level 4.1 g/dL (3.5-5.0); Alkaline Phosphatase 86 U/L (39-117); Anion Gap 10 (12-20); Aspartate Amino Transferase 19 U/L (5-31); Bilirubin Total 0.2 mg/dL (0.0-1.0); Blood Urea Nitrogen 16 mg/dL (9-16); C Reactive Protein 0.71 mg/dL (< or = 0.50); Calcium 9.5 mg/dL (8.4-10.2); Carbon Dioxide 27 mmol/L (22-29); Chloride 106 mmol/L (96-108); Estimated Glomerular Filt Rate > 60; Glucose Random 97 mg/dL (60-115); Sodium 139 mmol/L (135-145); Total Protein 7.4 g/dL (6.5-8.0)
== END 2024-02-09 11:07 | disposition home or self-care (01) ==
LOC: HO.HMGCLDS 11:06
PROVIDERS: PCP Internal Medicine; Visit Provider Nurse Practitioner Family
DX: M06.00 Rheumatoid arthritis without rheumatoid factor, unspecified site (principal); Z79.899 Other long term (current) drug therapy
CPT/HCPCS: 36415; 80053; 85025; 85652; 86140

== ENCOUNTER 2024-02-15 09:52 | Outpatient (AMB) | payer MEDICARE, MEDICAID, SELFPAY ==
--- NOTE | 2024-02-15 10:05 | MHC.OFFVIS ---
Vital Signs 02/15/24 10:19 Height 5 ft BP 132/80 Blood Pressure Location Rt brachial Position Sitting Pulse 88 Pulse Source Pulse Oximeter Temp 98.4 F Temp Source Skin Pulse Oximetry (%) 96 Oxygen Delivery Method Room Air Intake Visit Reasons: RA Intake Note: Patient reports today for RA follow up. Patient had episode of fevers about 3 days ago that have now subsided. Currently has a productive cough, reports congestion and sinus pressure. 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 Tarah Hansen returns today for follow up of her rheumatoid arthritis after starting Humira. She reports significant improvement to her hand pain and swelling since starting Humira. She denies any side effects of the medication to include injection site reaction. 12/09/2023: Cata Ms. Tarah Hansen returns today for follow up of her rheumatoid arthritis, osteoarthritis, and osteoporosis. She reports that her hands and wrists continues to worsened with pain and swelling. She says her hands are very stiff and painful and she drop things often. Her knees, especially the right, still hurt, and she thinks the corticosteroids injections are not helping and methotrexate is not enough. She continues on 20 mg weekly methotrexate folic acid 1 mg daily, and meloxicam 15 mg daily. Alendronate 70 mg weekly is continued for her osteoporosis and she denies any apparent side effects. She also takes pain medicines -OxyContin and Vicodin - through her primary doctor and cyclobenzaprine if needed. Last Visit: 08/24/2023 Dr. Allison For the rheumatoid arthritis she remains on 20 mg weekly methotrexate folic acid 1 mg daily, and meloxicam 15 mg daily. Alendronate 70 mg weekly is continued for her osteoporosis without any apparent side effects. She remains on pain medicines -OxyContin and Vicodin - through her primary doctor and cyclobenzaprine if needed. In some respects she says she has been more active but she has more stress at home. She had to go out to [place] and brought back her mother who apparently has dementia and was in a abuse/neglected living situation. She has been with the daughter now for about a month. They are trying to get a handle on her medical issues. The patient still gets intermittent hand and wrist pain but no swelling. I did inject the wrist awhile ago and that helped. She has knee pain on the right when she is more active but it does not swell. It was not helped with injections in past. The patient did look into getting to the pool at the [facility] but the expenses were too high. She says she may decide to buy a hot tub as she felt much more mobile and comfortable in the warm water. The patient does not describe any side effects from the current medications. [facility] Medical History (Updated 03/10/24 @ 01:38 by ASHLEY Rodas) Macrocytosis Screening examination for infectious disease skilled nursing current use of immunosuppressive drug Depressed Fibromyalgia Osteoarthritis of lumbar spine Osteoporosis Seronegative rheumatoid arthritis Social History Household Members Other:: Living with son Housing: House Are you a primary career development engineer to a significant other at home: No Do you presently have visiting nurse or other home services: No 75 years or older and lives alone: No Alcohol intake: never Patient Tobacco Use Status: Current everyday Tobacco user Tobacco use type: Cigarette Cigarettes Per Day: 5 Years Smoked: 43 years e-Cigarette/Vaping Use: Never Used service: No Current occupational status: unemployed Review of Systems Const All systems reviewed & are unremarkable except as noted in HPI and below Physical Exam Vital Signs: Last Vital Signs Temp 98.4 F 02/15/24 10:19 Pulse 88 02/15/24 10:19 BP 132/80 02/15/24 10:19 Pulse Ox 96 02/15/24 10:19 Oxygen Delivery Method Room Air 02/15/24 10:19 APPEARANCE: Patient in no acute distress HEART:? Regular rhythm, S1-S2 heard, no murmurs, rubs or gallops. LUNG:? Clear to percussion and auscultation EXTREMITIES: No edema, no calf tenderness, normal peripheral pulses. JOINT EXAM: Cervical Spine:.? Mild pain with more than 20 degrees lateral rotation or lateral flexion at 50 degrees.? Some paraspinal muscle tenderness. Thoracic Spine:.? No scoliosis.? No tenderness on palpation. Lumbar Spine:.? Alignment normal.? Mild to moderate pain with flexion beyond 45 degrees.? There is some slight paraspinal muscle tenderness. Chest Wall:.? No tenderness, swelling, increased warmth or erythema. Hands:? Right:? Moderate tenderness at the base of the thumb with some minimal bony enlargement.? Tenderness and swelling across PIPs and unable to make a tight first with weakened dragline oiler and stiffness. There is no thenar atrophy, sensory loss, a flexor tendon triggering.? Left: Moderate tenderness at the base of the thumb with some minimal bony enlargement.? Tenderness and swelling across PIPs and unable to make a tight first with weakened dragline oiler and stiffness..? No thenar atrophy or sensory loss. Her fingers are warm with so erythema Wrists:? Right:?no pain with flexion at 75 degrees with some the tenderness but no swelling, increased warmth or erythema.? Left:? Pain-free flexion or extension to 75 degrees.? Tenderness on palpation but no swelling. Elbows:. Normal pain-free range of motion without tenderness, swelling, increased warmth or erythema. Shoulders:.?? Right: Full range of motion with slight discomfort with abduction 150 degrees.? The pain is felt over the trapezius in the top of the shoulders.? Mild anterior and posterior tenderness without adenopathy, weakness, swelling, increased warmth or erythema. Left: Mild pain with the extremes of normal range of motion. There is mild anterior tenderness without abductor weakness or adenopathy. Hips:? Full range of motion with lumbar pain with more than 10 degrees of internal and external rotation.? No groin pain with motion.? Hip bursa:.? No tenderness. Knees:.? Right:? Slight pain with extremes of flexion extension with some minimal medial tenderness but no redness or effusion.? Mild patellofemoral crepitus.? Left:? Normal pain-free range of motion with mild patellofemoral crepitus but no tenderness, swelling, increased warmth or erythema. Ankles:.? Normal pain-free range of motion with mild tenderness but no swelling, increased warmth or erythema. Feet:.? Normal pain-free range of motion without tenderness, swelling, increased warmth or erythema. Tender points:? mild tenderness to digital palpation at the occiput, trapezius, second rib, lateral epicondyle, right knee, greater trochanter and gluteal area bilaterally. Results Reviewed Results Reviewed: Laboratory Tests 02/09/24 11:38 WBC 6.5 RBC 3.69 L Hgb 13.0 Hct 38.2 MCV 103.5 H MCH 35.2 H ESR 44 H Creatinine 0.66 AST 19 ALT 14 C-Reactive Protein 0.71 H Assessment & Plan Assessment & Plan (1) skilled nursing current use of immunosuppressive drug: Comment: lab in May and July Code(s): Z79.899 - Other fci (current) drug therapy Category: Medical (2) Osteoporosis: Comment: Alendronate since 2019 Code(s): M81.0 - Age-related osteoporosis without current pathological fracture Category: Medical Qualifiers: Osteoporosis type: age-related Presence of current pathological fracture: without current pathological fracture Qualified Code(s): M81.0 - Age-related osteoporosis without current pathological fracture (3) Seronegative rheumatoid arthritis: Comment: methotrexate started 01/2019 Code(s): M06.00 - Rheumatoid arthritis without rheumatoid factor, unspecified site Category: Medical (4) Macrocytosis: Code(s): D75.89 - Other specified diseases of blood and blood-forming organs Category: Medical Plan #SeroNeg RA: Ms. Rascon has been on MTX since 2019 and no other medication has been added to manage the RA. With persistently elevated ESR/CRP and swollen, painful Hand IP joints and knees, I do not think the RA is adequately managed with MTX. She has marked tenderness and swelling across PIPs and unable to make a tight first with weakened dragline oiler and stiffness. The patient states her hands has been like that on and off but is more swollen sometimes than others. She has significant reduction to hand swelling and tenderness, and improvement to ESR/CRP since adding Humira. Continue MTX 15 mg QW, Folic Acid 1 mg QD and Humira 40mg QOW. 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 We will continue to monitor CBC and CMP. Patient knows to hold medications in the event of fevers, infections, surgery and nonhealing wound and seek immediate medical attention. #OA: Lumbar: There is lumbar pain of course due to osteoarthritis and previous compression fractures. The current pain regimen seems to be helpful for her without over-sedation. There are many areas of tenderness suggesting some underlying fibromyalgia as well. She should continue with efforts at trying to be active. Continue with Oxycontin and Hydrocodone - will be discussing with pain management changes to meds. She also uses Cyclobenzaprine #Osteoporosis: Alendronate is tolerated and should be continued for her osteoporosis. Return in 8 weeks. I spent 25 minutes reviewing chart, evaluating patient and documenting. Orders: Orders Complete Blood Count Auto Diff 02/15/24 Z79.899 - Other buttermaker continuous churn (current) drug therapy, M06.00 - Rheumatoid arthritis without rheumatoid factor, unspecified site Comprehensive Met. Panel 02/15/24 Z79.899 - Other fci (current) drug therapy, M06.00 - Rheumatoid arthritis without rheumatoid factor, unspecified site Erythrocyte Sedimentation Rate 02/15/24 Z79.899 - Other fci (current) drug therapy, M06.00 - Rheumatoid arthritis without rheumatoid factor, unspecified site C Reactive Protein 02/15/24 Z79.899 - Other buttermaker continuous churn (current) drug therapy, M06.00 - Rheumatoid arthritis without rheumatoid factor, unspecified site Medications: Changed From methotrexate sodium 20 mg (8 x 2.5 mg) PO QWEEK 96 tabs 1RF M06.00 - Rheumatoid arthritis without rheumatoid factor, unspecified site To methotrexate sodium 15 mg (6 x 2.5 mg) PO QWEEK 72 tabs 1RF M06.00 - Rheumatoid arthritis without rheumatoid factor, unspecified site Coding Level of Care Code Est Pt Level 4 (86946) Complex EM visit Add On G2211 Diagnoses technician terminal and repeater current use of immunosuppressive drug Z.899 Age-related osteoporosis without current pathological fracture M81.0 Osteoporosis type: age-related Presence of current pathological fracture: without current pathological fracture Seronegative rheumatoid arthritis M06.00 Macrocytosis D75.89
[2024-02-15 10:19] VITALS: BP 132/80; PULSE 88; TEMP 36.9; O2SAT 96
== END 2024-02-15 10:41 | disposition home or self-care (01) ==
PROVIDERS: PCP Internal Medicine; Visit Provider Nurse Practitioner Family
DX: Z79.899 Other long term (current) drug therapy (principal); M81.0 Age-related osteoporosis without current pathological fracture; M06.00 Rheumatoid arthritis without rheumatoid factor, unspecified site; D75.89 Other specified diseases of blood and blood-forming organs
CPT/HCPCS: 99214; G2211

== ENCOUNTER → 2024-02-15 09:52 | Outpatient (BNVA) | payer MEDICARE, MEDICAID, SELFPAY | PROVIDERS: PCP Internal Medicine; Visit Provider Nurse Practitioner Family | DX: M81.0 Age-related osteoporosis without current pathological fracture (principal); M06.00 Rheumatoid arthritis without rheumatoid factor, unspecified site; D75.89 Other specified diseases of blood and blood-forming organs; Z79.899 Other long term (current) drug therapy | CPT/HCPCS: 99212 ==

== ENCOUNTER 2024-03-27 10:07 | Outpatient (REF) | payer MEDICARE, MEDICAID, SELFPAY ==
[2024-03-27 13:27] LABS: MANUAL DIFF FLAG NO
[2024-03-27 13:45] LABS: Basophils Absolute Auto 0.1 X10*3/uL (0.0-0.2); Eosinophils Absolute Auto 0.2 X10*3/uL (0.0-0.4); Eosinophils Percent Auto 2.9 % (0-4); Hematocrit 39.5 % (37.0-47.0); Hemoglobin 13.1 g/dl (12.0-16.0); Imm Gran Abs Auto 0.02 X10*3/uL (0.00-0.03); Imm Gran Pct Auto 0.2 % (0.0-0.4); Lymphocytes Percent Auto 35.2 % (20-40); Mean Corpuscular HGB Conc 33.2 g/dl (31.0-35.0); Mean Corpuscular Hemoglobin 35.4 pg (27.0-33.0); Mean Corpuscular Volume 106.8 fL (80.0-98.0); Mean Platelet Volume 10.1 fL (9.4-12.3); Monocytes Absolute Auto 0.5 X10*3/uL (0.1-1.2); Monocytes Percent Auto 6.1 % (2-11); Neutrophils Absolute Auto 4.6 x10*3/uL (2.0-8.3); Neutrophils Percent Auto 54.6 % (45-73); Platelet Count 304 X10*3/uL (160-400); Red Cell Distribution Width 13.1 % (11.0-16.0); White Blood Count 8.4 X10*3/uL (4.8-10.8)
[2024-03-27 14:07] LABS: Alanine Aminotransferase 12 U/L (0-31); Albumin Level 4.4 g/dL (3.5-5.0); Alkaline Phosphatase 90 U/L (39-117); Anion Gap 15 (12-20); Aspartate Amino Transferase 20 U/L (5-31); Bilirubin Total 0.3 mg/dL (0.0-1.0); Blood Urea Nitrogen 13 mg/dL (9-16); C Reactive Protein 0.89 mg/dL (< or = 0.50); Calcium 9.9 mg/dL (8.4-10.2); Carbon Dioxide 25 mmol/L (22-29); Chloride 105 mmol/L (96-108); Estimated Glomerular Filt Rate > 60; Glucose Random 100 mg/dL (60-115); Potassium 3.7 mmol/L (3.3-5.1); Sodium 141 mmol/L (135-145); Total Protein 7.7 g/dL (6.5-8.0)
[2024-03-27 14:24] LABS: Erythrocyte Sedimentation Rate 61 MM/HR (0-20)
== END 2024-03-27 10:08 | disposition home or self-care (01) ==
LOC: HO.HMGCLDS 10:07
PROVIDERS: PCP Internal Medicine; Visit Provider Nurse Practitioner Family
DX: M06.00 Rheumatoid arthritis without rheumatoid factor, unspecified site (principal); Z79.899 Other long term (current) drug therapy
CPT/HCPCS: 36415; 80053; 85025; 85652; 86140

== ENCOUNTER 2024-10-03 14:49 | Outpatient (REF) | payer MEDICARE, MEDICAID, SELFPAY ==
[2024-10-03 15:51] LABS: MANUAL DIFF FLAG NO
[2024-10-03 16:44] LABS: Basophils Absolute Auto 0.1 X10*3/uL (0.0-0.2); Basophils Percent Auto 0.7 % (0-2); Eosinophils Absolute Auto 0.2 X10*3/uL (0.0-0.4); Hematocrit 38.5 % (37.0-47.0); Hemoglobin 12.9 g/dl (12.0-16.0); Imm Gran Abs Auto 0.03 X10*3/uL (0.00-0.03); Imm Gran Pct Auto 0.3 % (0.0-0.4); Lymphocytes Absolute Auto 4.3 X10*3/uL (1.2-4.9); Lymphocytes Percent Auto 40.6 % (20-40); Mean Corpuscular HGB Conc 33.5 g/dl (31.0-35.0); Mean Corpuscular Hemoglobin 35.4 pg (27.0-33.0); Mean Corpuscular Volume 105.8 fL (80.0-98.0); Mean Platelet Volume 9.7 fL (9.4-12.3); Monocytes Absolute Auto 0.8 X10*3/uL (0.1-1.2); Neutrophils Absolute Auto 5.1 x10*3/uL (2.0-8.3); Neutrophils Percent Auto 48.4 % (45-73); Platelet Count 322 X10*3/uL (160-400); Red Blood Count 3.64 X10*6/uL (4.20-5.50); Red Cell Distribution Width 12.8 % (11.0-16.0); White Blood Count 10.5 X10*3/uL (4.8-10.8)
[2024-10-03 17:17] LABS: Albumin Level 4.3 g/dL (3.5-5.0); Anion Gap 15 (12-20); Aspartate Amino Transferase 20 U/L (5-31); Bilirubin Total 0.3 mg/dL (0.0-1.0); Blood Urea Nitrogen 14 mg/dL (9-16); C Reactive Protein 1.03 mg/dL (< or = 0.50); Calcium 9.7 mg/dL (8.4-10.2); Carbon Dioxide 28 mmol/L (22-29); Chloride 101 mmol/L (96-108); Estimated Glomerular Filt Rate > 60; Glucose Random 77 mg/dL (60-115); Sodium 140 mmol/L (135-145); Total Protein 7.6 g/dL (6.5-8.0)
[2024-10-03 17:37] LABS: Alanine Aminotransferase 14 U/L (0-31); Alkaline Phosphatase 78 U/L (39-117)
[2024-10-03 17:38] LABS: Erythrocyte Sedimentation Rate 59 MM/HR (0-20)
[2024-10-04 08:06] LABS: HBS Num1 33.47 mIU/mL (0-7.99); HBsAGNum1 0.26 S/CO (0.00-0.99); Hepatitis A Antibody IgM 0.17 Index (0-0.79); Hepatitis B Core Antibody Nonreactive (Nonreactive); Hepatitis B Surface Antigen Negative (Negative); ~HepC Num1 0.18 S/CO (0.00-0.79); ~Hepatitis A Antibody IgM Nonreactive (Nonreactive); ~Hepatitis B Surface Antibody REACTIVE (Nonreactive); ~Hepatitis C Antibody Nonreactive (Nonreactive)
== END 2024-10-03 14:50 | disposition home or self-care (01) ==
LOC: HO.LAB 14:49
PROVIDERS: PCP Internal Medicine; Visit Provider Student in an Organized Health Care Education/Training Program
DX: M81.0 Age-related osteoporosis without current pathological fracture (principal); M06.00 Rheumatoid arthritis without rheumatoid factor, unspecified site; Z79.899 Other long term (current) drug therapy; D75.89 Other specified diseases of blood and blood-forming organs; F17.210 Nicotine dependence, cigarettes, uncomplicated; E55.9 Vitamin D deficiency, unspecified; Z79.620 Long term (current) use of immunosuppressive biologic
CPT/HCPCS: 36415; 80053; 85025; 85652; 86140; 86704; 86706; 86709; 86803; 87340; 99212

== ENCOUNTER 2024-10-03 14:49 | Outpatient (AMB) | payer MEDICARE, MEDICAID, SELFPAY ==
--- NOTE | 2024-10-03 14:50 | A.OFFVIS_ITS ---
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 Accompanied by: Self / Same As Patient Allergies seafood Allergy (Severe, Verified 10/03/24 14:55) throat closes sulfamethoxazole [From Bactrim] Allergy (Intermediate, Verified 10/03/24 14:55) hives trimethoprim [From Bactrim] Allergy (Intermediate, Verified 10/03/24 14:55) hives Medication List - Last Reconciled 10/03/24 by Suha Bettencourt MD albuterol sulfate 90 mcg/actuation 0 mcg inhalation alendronate 70 mg PO QWEEK aspirin (Adult Low Dose Aspirin) 81 mg PO DAILY budesonide-formoterol 160-4.5 mcg/actuation (Symbicort) inhalation cholecalciferol (vitamin D3) (Vitamin D3) 50 mcg PO DAILY cyclobenzaprine 5 mg PO TID PRN diltiazem HCl ER 240 mg PO DAILY docusate sodium 100 mg PO BID folic acid 1 mg PO DAILY Humira(CF) Pen (adalimumab) 40 mg (0.4 mL) subcut Q2W NS hydrocodone-acetaminophen 10-325 mg 1 tab PO .up to 5 times a day PRN meloxicam 15 mg PO DAILY methotrexate sodium 20 mg (8 x 2.5 mg) PO QWEEK omeprazole 40 mg PO DAILY oxycodone ER (OxyContin) 15 mg PO BID rosuvastatin 5 mg PO DAILY HPI Comments Details: Patient is a 58-year-old female with hyperlipidemia, osteoporosis complicated by lumbar compression fractures, osteoarthritis of the lumbar spine, fibromyalgia and seronegative rheumatoid arthritis here today for follow up Interval History: Patient last seen 02/15/2024 with Cata Read. At that time she was reporting improvement in her hand pain and swelling since starting Humira Her labs showed consistent macrocytosis and so her methotrexate was decreased from 20 mg to 15 mg Since that last visit patient states that she stopped taking the Humira because her last provider had left than she did not feel comfortable taking a new medication without being monitored. She also did not decrease her dose of methotrexate. She does report prolonged morning stiffness intermittent episodes of swelling to her hands. Rheumatologic History: Diagnosed with rheumatoid arthritis 2018 Methotrexate - good efficacy Added Humira 11/2023 due to partial effectiveness of Mtx Current Rheumatology Medication(s): Methotrexate 20mg weekly folic acid 1 mg daily Humira 40mg SC every 2 weeks [facility] Medical History (Updated 10/03/24 @ 15:32 by Suha Bettencourt MD) Adalimumab (Humira) long-term use Macrocytosis Screening examination for infectious disease skilled nursing current use of immunosuppressive drug Depressed Fibromyalgia Osteoarthritis of lumbar spine Osteoporosis Seronegative rheumatoid arthritis Social History Household Members Other:: Living with son Housing: House Are you a primary resident care technician to a significant other at home: No Do you presently have visiting nurse or other home services: No 75 years or older and lives alone: No Alcohol intake: never Patient Tobacco Use Status: Current everyday Tobacco user Tobacco use type: Cigarette Cigarettes Per Day: 5 Years Smoked: 43 years e-Cigarette/Vaping Use: Never Used service: No Current occupational status: unemployed Review of Systems Const Details: Review of Systems Constitutional: Denies fever, chills, weight loss ENT: Denies vision changes, eye pain or eye redness, dental caries, dry mouth GI: Denies nausea, vomiting, diarrhea, abdominal pain, change in BM Pulm: Denies SOB, FRANCO, hemoptysis, wheezing Cards: Denies chest pain, palpitations Skin: Denies Raynaud's, rash, nail changes, photosensitivity, IMPORT/EXPORT CLERK: Denies headaches, weakness, paresthesias, recurrent falls MSK: as per HPI All other systems reviewed and are unremarkable except noted above Physical Exam Vital Signs: Last Vital Signs Pulse 72 10/03/24 14:55 BP 104/68 10/03/24 14:55 BMI result Body Mass Index 28.8 Physical Examination CONSTITUITIONAL Patient alert and cooperative. Well appearing and in no apparent painful distress HEENT Conjunctiva and sclera clear. ?Pupils equal round and reactive to light. ?No lymphadenopathy. ? CHEST/RESPIRATORY SYSTEM Normal respiratory effort and able to speak in complete sentences. ?Clear to auscultation bilaterally. ?No crackles, rales, rhonchi, wheezes heard. CARDIAC SYSTEM Regular rate and rhythm. ?S1 and S2 heard no murmurs. ?Radial pulses intact bilaterally MSK Hands: ?Good documentation supervisor strength bilaterally. Heberden's nodes noted. ?Swelling noted to the PIPs throughout. Wrists: ?Full range of motion at the wrists without pain. ?No tenderness to pa lpation or synovitis noted to the wrists. Elbows: Full range of motion. Mild tenderness to palpation of joints bilaterally with some fullness noted. Shoulders: Full range of motion without pain. No tenderness, weakness, swelling, increased warmth or erythema Knees: ?Full range of motion. ?No tenderness, swelling, increased warmth or erythema.?No effusion or crepitations SKIN Skin intact without rashes. Results Reviewed Results Reviewed: Laboratory Tests 12/15/23 03/27/24 10:57 10:15 WBC 8.4 RBC 3.70 L Hgb 13.1 Hct 39.5 MCV 106.8 H MCH 35.4 H Plt Count 304 ESR 61 H Sodium 141 Potassium 3.7 Chloride 105 Carbon Dioxide 25 BUN 13 Creatinine 0.75 AST 20 ALT 12 C-Reactive Protein 0.89 H Hepatitis A IgM Ab Nonreactive Hep Bs Antigen Negative Hep Bs Antibody REACTIVE Hep B Core Total Ab Nonreactive Hepatitis C Ab (EIA) Nonreactive TB Test (T-Spot) Com Negative Assessment & Plan Assessment & Plan (1) Seronegative rheumatoid arthritis: Comment: methotrexate started 01/2019 Humira started 11/2023. Patient held the medication due to lack of providers , restarted 09/2024 Code(s): M06.00 - Rheumatoid arthritis without rheumatoid factor, unspecified site Category: Medical Plan: #Seronegative RA Patient with seronegative RA that is not in remission. Discussed with patient that she would benefit from restarting the Humira Plan - Restart Humira 40mg every other week - Methotrexate 20mg Po weekly - Increase folic acid to 2mg daily in light of macrocytosis - RTC 4 months (2) Osteoporosis: Comment: Alendronate since 2018 Code(s): M81.0 - Age-related osteoporosis without current pathological fracture Category: Medical Qualifiers: Osteoporosis type: age-related Presence of current pathological fracture: without current pathological fracture Qualified Code(s): M81.0 - Age-related osteoporosis without current pathological fracture Plan: #Osteoporosis Not currently on alendronate Restart same Check DEXA (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 Limit alcohol and avoid Bactrim ? Monitoring: ?CBC, BMP, LFTs every 3-4 months and hepatitis serologies as needed (4) Macrocytosis: Code(s): D75.89 - Other specified diseases of blood and blood-forming organs Category: Medical (5) Vitamin D deficiency: Code(s): E55.9 - Vitamin D deficiency, unspecified (6) Adalimumab (Humira) long-term use: Code(s): Z79.620 - vermin exterminator (current) use of immunosuppressive biologic Category: Medical Plan: #Long-term Use of TNF Inhibitors: Humira Discussed with the patient the benefits and risks of TNF inhibitors for the management of the rheumatic condition Benefits include reduce pain, maintenance of remission and reduction of flares as well as ?progression of the disease Risks include injection sites/infusion reactions, serious infections (such as bacterial infections, opportunistic infections), malignancy, delaminating syndromes, autoimmune phenomena, CHF exacerbations, palmar plantar psoriasis and cytopenias Recommended rotating injection sites, and holding medication during and for up to 1 week after resolution of a febrile illness or open skin wound Plan I spent 30 minutes reviewing the record and labs, seeing the patient, discussing the treatment plan and documenting in the medical record Orders: Orders Complete Blood Count Auto Diff Today D75.89 - Other specified diseases of blood and blood-forming organs, M06.00 - Rheumatoid arthritis without rheumatoid factor, unspecified site, M81.0 - Age-related osteoporosis without current pathological fracture, Z79.899 - Other terminal operations manager (current) drug therapy Comprehensive Met. Panel Today D75.89 - Other specified diseases of blood and blood-forming organs, M06.00 - Rheumatoid arthritis without rheumatoid factor, unspecified site, M81.0 - Age-related osteoporosis without current pathological fracture, Z79.899 - Other detention (current) drug therapy C Reactive Protein Today D7. - Other specified diseases of blood and blood- forming organs, M06.00 - Rheumatoid arthritis without rheumatoid factor, unspecified site, M81.0 - Age-related osteoporosis without current pathological fracture, Z79.899 - Other detention (current) drug therapy Erythrocyte Sedimentation Rate Today D7. - Other specified diseases of blood and blood-forming organs, M06.00 - Rheumatoid arthritis without rheumatoid factor, unspecified site, M81.0 - Age-related osteoporosis without current pathological fracture, Z79.899 - Other detention (current) drug therapy Hepatitis A,B,C Profile Today . - Other specified diseases of blood and blood-forming organs, M06.00 - Rheumatoid arthritis without rheumatoid factor, unspecified site, M81.0 - Age-related osteoporosis without current pathological fracture, Z79.899 - Other detention (current) drug therapy XR DEXA axial skeleton Today D7. - Other specified diseases of blood and blood-forming organs, M06.00 - Rheumatoid arthritis without rheumatoid factor, unspecified site, M81.0 - Age-related osteoporosis without current pathological fracture, Z79.899 - Other detention (current) drug therapy Medications: New cholecalciferol (vitamin D3) (Vitamin D3) 50 mcg PO DAILY 90 tabs 1RF E55.9 - Vitamin D deficiency, unspecified Changed From folic acid 1 mg PO DAILY D7. - Other specified diseases of blood and blood-forming organs, M06.00 - Rheumatoid arthritis without rheumatoid factor, unspecified site, Z79.899 - Other terminal operations manager (current) drug therapy To folic acid 2 mg (2 x 1 mg) PO DAILY 180 tabs 0RF 90 days D7. - Other specified diseases of blood and blood-forming organs, M06.00 - Rheumatoid arthritis without rheumatoid factor, unspecified site, Z79.899 - Other terminal operations manager (current) drug therapy Refilled Humira(CF) Pen (adalimumab) 40 mg (0.4 mL) subcut Q2W 2 ea 2RF NS methotrexate sodium 20 mg (8 x 2.5 mg) PO QWEEK 96 tabs 1RF M06.00 - Rheumatoid arthritis without rheumatoid factor, unspecified site alendronate 70 mg PO QWEEK 12 tabs 2RF M81.0 - Age-related osteoporosis without current pathological fracture Coding Level of Care Code Est Pt Level 4 (00236) Complex EM visit Add On G2211 Diagnoses Seronegative rheumatoid arthritis M06.00 Age-related osteoporosis without current pathological fracture M81.0 Osteoporosis type: age-related Presence of current pathological fracture: without current pathological fracture 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
[2024-10-03 14:55] VITALS: BP 104/68; PULSE 72; BMI 28.8
== END 2024-10-03 15:24 | disposition home or self-care (01) ==
PROVIDERS: PCP Internal Medicine; Visit Provider Student in an Organized Health Care Education/Training Program
DX: M06.00 Rheumatoid arthritis without rheumatoid factor, unspecified site (principal); M81.0 Age-related osteoporosis without current pathological fracture; Z79.899 Other long term (current) drug therapy; D75.89 Other specified diseases of blood and blood-forming organs; E55.9 Vitamin D deficiency, unspecified; Z79.620 Long term (current) use of immunosuppressive biologic
CPT/HCPCS: 99214; G2211